=== PATIENT | male | born 1980 | race African-American/Black ===

== ENCOUNTER 2021-06-25 22:30 | Emergency (ER) | payer SELFPAY ==
[~2021-06-25] VITALS: Ht 172.7 cm; Wt 90.7 kg
== END 2021-06-26 00:04 | disposition left against medical advice (07) ==
LOC: ED 22:30
DX: T40.2X1A Poisoning by other opioids, accidental (unintentional), initial encounter (principal); Z91.040 Latex allergy status; Y92.89 Other specified places as the place of occurrence of the external cause